=== PATIENT | female | born 1970 | race Caucasian/White ===

== ENCOUNTER → 2019-09-20 | Day surgery (SDC) | payer MEDICARE, BC ==
[2019-09-15 15:08] VITALS: BMI 24.2
[~2019-09-20] MED LIST: LACTATED RINGERS 1,000 ML IV SCH; LIDOCAINE 1% 20 ML VIAL (10MG/ML) FOR IV START INTRADERMA PRN; MIDAZOLAM 2 MG/2 ML VIAL IVP ONE; PROPOFOL 10 MG/ML 20 ML VIAL IV ONE; SODIUM CHLORIDE 0.9% 500 ML IV ONE
[2019-09-20 10:03] LABS: Glucose,Whole Blood 80 mg/dL (75-99)
[2019-09-20 10:04] VITALS: RESP 16; TEMP 98.5
--- NOTE | 2019-09-20 11:19 | P.PCN ---
Date of Procedure: 09/20/19 Description of Procedure: BRIEF HISTORY: Patient is a 49-year-old female presenting for outpatient colonoscopy for screening for malignant neoplasm of the colon. No prior colonoscopies reported. She does report 3-4 loose bowel movements daily which is different than constipation she previously experienced. No family history of colon cancer. PROCEDURE PERFORMED: Colonoscopy with polypectomy and biopsy. PREOPERATIVE DIAGNOSIS: Screening for malignant neoplasm of the colon, no prior colonoscopy reported. ESTIMATED BLOOD LOSS: Minimal. IV sedation per Anesthesia. PROCEDURE: After informed consent was obtained, the patient, was brought into the endoscopy unit. IV sedation was administered by Anesthesia under continuous monitoring. Digital rectal examination was normal. Initially the Olympus CF-190 flexible video colonoscope was then inserted in the rectum, gradually advanced into the cecum without any difficulty. Careful examination was performed as the scope was gradually being withdrawn. Ileocecal valve and the appendiceal orifice were visualized and appeared normal. Prep was good. Mucosa of the cecum, ascending colon, transverse colon, descending colon, sigmoid colon, and rectum appeared normal. 2 diminutive splenic flexure polyp removed with cold forceps polypec ramiro measuring 1-2 mm in size. Retroflexion was performed in the rectum and no lesions were seen, low-grade internal hemorrhoids noted. The patient tolerated the procedure well. IMPRESSION: 2 diminutive splenic flexure polyps removed with cold forcep polypectomy. Low-grade internal hemorrhoids. Random biopsies taken of right left colon given altered bowel function. RECOMMENDATIONS: Findings of this examination were discussed with the patient and her [id number]. Okay to resume diet. Okay to resume medications. Await pathology from polypectomy and biopsy. Would recommend repeat colonoscopy in 7 years for history of polyps pending pathology from polypectomy.
[2019-09-20 11:21] VITALS: PULSE 74
[2019-09-20 11:45] VITALS: BP 130/80
== END ==
LOC: ORWHC2ENDO 08:46
PROVIDERS: ATTEND Internal Medicine
DX: Z12.11 Encounter for screening for malignant neoplasm of colon (principal); D12.3 Benign neoplasm of transverse colon; K63.5 Polyp of colon; I10 Essential (primary) hypertension; J45.909 Unspecified asthma, uncomplicated; E07.9 Disorder of thyroid, unspecified; K21.9 Gastro-esophageal reflux disease without esophagitis; F32.9 Major depressive disorder, single episode, unspecified; M79.7 Fibromyalgia; G90.50 Complex regional pain syndrome I, unspecified; Z79.890 Hormone replacement therapy; Z79.51 Long term (current) use of inhaled steroids; Z79.52 Long term (current) use of systemic steroids; Z79.899 Other long term (current) drug therapy; Z88.8 Allergy status to other drugs, medicaments and biological substances
CPT/HCPCS: 81025; 88305; 45380; J2250; J2704

== ENCOUNTER → 2021-10-01 | Outpatient (CLI) | payer MEDICARE, BC ==
[~2021-10-01] MED LIST changes: -LACTATED RINGERS 1,000 ML IV SCH; -LIDOCAINE 1% 20 ML VIAL (10MG/ML) FOR IV START INTRADERMA PRN; -MIDAZOLAM 2 MG/2 ML VIAL IVP ONE; -PROPOFOL 10 MG/ML 20 ML VIAL IV ONE; -SODIUM CHLORIDE 0.9% 500 ML IV ONE; +TIXAGEVIMAB/CILGAVIMAB (EUA) 300 MG/3 ML COMBO.PKG IM NR
[2021-10-01 12:44] VITALS: BP 140/72; PULSE 58; RESP 16; TEMP 98.3
== END ==
LOC: PROCWHC3 12:17
PROVIDERS: ATTEND Nurse Practitioner
DX: Z29.11 Encounter for prophylactic immunotherapy for respiratory syncytial virus (RSV) (principal); Z88.8 Allergy status to other drugs, medicaments and biological substances
CPT/HCPCS: Q0220; M0220